=== PATIENT | male | born 1970 | race Caucasian/White ===

== ENCOUNTER 2017-12-31 11:17 | Emergency (ER) | payer BC, OTHER ==
[~2017-12-31] VITALS: Ht 190.5 cm; Wt 120.2 kg
--- NOTE | ~2017-12-31 | EKG ---
[address] [address] ELECTROCARDIOGRAM REPORT Name: JULY BRANTLEY MONIBEVERLY Room #: [id number] Admission: 12/31/17 Attend Phys: Discharge: 12/31/17 Date of : 74 Report #: [id number] THIS REPORT FOR: //name// [facility] ED Test Date: 2017-12-31 Test Time: 11:20:48 Pat Name: JULY BRANTLEY Department: Room: Gender: M [employer] Lead: [facility] : 1970 Requested By: Segun Perry Order Number: [id number] MD: Jose Luis Hutchison Measurements Intervals [place] Rate: 63 P: 57 ID: 200 QRS: 54 QRSD: 99 T: 45 QT: 407 QTc: 417 Interpretive Statements Sinus rhythm Normal tracing No previous ECG available for comparison Electronically Signed On 12-31-2017 16:45:00 CDT by Jose Luis Hutchison [email or web address] <ELECTRONICALLY SIGNED> By: Jose Luis Hutchison MD, [facility] 12/31/17 1645 1120 1120 Jose Luis Hutchison MD, FAC /EPI
[2017-12-31 11:38] LABS: ABSOLUTE NEUTROPHILS 4.5 thou/uL (1.4-8.2); BASOPHILS 0.7 % (0.0-2.0); EOSINOPHILS 2.6 % (0.0-3.0); HEMATOCRIT 42.2 % (42.0-52.0); HEMOGLOBIN 14.5 gm/dL (14.0-18.0); LYMPHOCYTES 25.7 % (24.0-44.0); MCH 31.6 pg (26.0-34.0); MCHC 34.5 g/dL (28.0-37.0); MCV 91.6 fL (80.0-100.0); MONOCYTES 6.1 % (1.0-8.0); PLATELET COUNT 191 thou/uL (150-400); POLYS 64.9 % (36.0-66.0); RDW 13.1 % (10.5-14.5)
[2017-12-31 11:55] LABS: ANION GAP 8 mmol/L (7-16); BUN 13 mg/dL (7-18); CALCIUM 9.1 mg/dL (8.5-10.1); CHLORIDE 106 mmol/L (98-107); CO2 27 mmol/L (21-32); CREATININE 1.3 mg/dL (0.7-1.3); GLUCOSE 113 mg/dL (74-106); POTASSIUM 4.3 mmol/L (3.5-5.1); SODIUM 141 mmol/L (136-145)
[2017-12-31 12:00] LABS: ALBUMIN 3.8 g/dL (3.4-5.0); SGOT 19 U/L (15-37); SGPT 33 U/L (30-65); TOTAL BILIRUBIN 0.5 mg/dL (<0.1-1.0); TOTAL PROTEIN 7.2 g/dL (6.4-8.2); TROPONIN-I <0.06 ng/mL (<0.06)
[2017-12-31] MEDS ORDERED: MOBIC15 MG PO (12:52)
[2017-12-31 12:57] VITALS: BP 114/68
== END 2017-12-31 13:03 | disposition home or self-care (01) ==
LOC: ER 11:17
PROVIDERS: Physician Assistant
DX: R07.89 Other chest pain (principal); F17.210 Nicotine dependence, cigarettes, uncomplicated